=== PATIENT | female | born 1980 | race American Indian/Alaskan Native ===

== ENCOUNTER 2019-07-03 15:55 | Emergency (ER) | payer BC ==
--- NOTE | 2019-07-03 16:10 | Event Note ---
ED Screening Note ED Screening Note: constricted on exam palpitations come and go associated with cp and sob denies c/e/d pmh denies meds denies surgery denies no fever or chills no exposure This initial assessment/diagnostic orders/clinical plan/treatment(s) is/are subject to change based on patients health status, clinical progression and re- assessment by fellow clinical providers in the ED. Further treatment and workup at subsequent clinical providers discretion. Patient/guardian urged not to elope from the ED as their condition may be serious if not clinically assessed and managed. Initial orders include: ekg- nap basic labs/ua/xray defer dimer to provider in ER
[2019-07-03 17:59] LABS: Basophils # (Auto) 0.1 K/mm3 (0.0-0.1); Basophils % (Auto) 1.4 % (0.0-1.8); Eosinophils # (Auto) 0.1 K/mm3 (0.0-0.4); Eosinophils % (Auto) 1.7 % (0.0-4.3); Hematocrit 40.8 % (30.3-42.9); Hemoglobin 13.2 gm/dl (10.1-14.3); Lymphocytes # (Auto) 2.7 K/mm3 (1.2-5.4); Lymphocytes % (Auto) 34.5 % (13.4-35.0); Mean Corpuscular HGB Conc 32 % (30-34); Mean Corpuscular Volume 83 fl (79-97); Monocytes # (Auto) 0.4 K/mm3 (0.0-0.8); Monocytes % (Auto) 4.9 % (0.0-7.3); Platelet Count 272 K/mm3 (140-440); Red Blood Count 4.91 M/mm3 (3.65-5.03); Red Cell Distribution Width 13.6 % (13.2-15.2)
[2019-07-03 18:10] LABS: Alanine Aminotransferase 22 units/L (7-56); Albumin 4.7 g/dL (3.9-5); BUN/Creatinine Ratio 20; Blood Urea Nitrogen 14 mg/dL (7-17); Calcium 9.6 mg/dL (8.4-10.2); Hemolysis Index 13
[2019-07-03] MEDS ORDERED: NAPROXEN 500 MG TAB PO ONE (18:21)
--- NOTE | 2019-07-03 18:26 | Emergency Department Report ---
ED General Adult HPI - General Chief complaint: Chest Pain Stated complaint: HEART RAPID/CP Time Seen by Provider: 07/03/19 16:09 Source: patient Mode of arrival: Ambulatory Limitations: No Limitations - History of Present Illness Initial comments: Patient is a 38-year-old female presents emergency room with complaints of palpitations that began earlier today. She states that she has felt them intermittently throughout the day. She states that she has associated right- sided chest tightness. She states when she feels the palpitations she has mild shortness of breath. She has no shortness of breath currently. She denies any leg swelling, cough, hemoptysis, fever, recent travel, recent surgery, hormone use. She denies any past medical history or allergies to medications. She states she drinks approximately 1 cup of coffee a day. She states her last menstrual cycle was last week. She denies any family history of cardiac issues or DVT/PE. - Related Data Previous Rx's Medication Instructions Recorded Last Taken Type Naproxen [EC-Naproxen] 500 mg PO BID PRN #14 tablet. 07/03/19 Unknown Rx cephALEXin [Keflex] 500 mg PO BID 7 Days #14 cap 07/03/19 Unknown Rx ED Review of Systems ROS: Stated complaint: HEART RAPID/CP Other details as noted in HPI Comment: All other systems reviewed and negative ED Past Medical Hx - Past Medical History Previous Medical History?: No - Surgical History Past Surgical History?: No - Social History Smoking Status: Former Smoker Substance Use Type: None - Medications Home Medications: Home Medications Medication Instructions Recorded Confirmed Last Taken Type Naproxen [EC-Naproxen] 500 mg PO BID PRN #14 tablet. 07/03/19 Unknown Rx cephALEXin [Keflex] 500 mg PO BID 7 Days #14 cap 07/03/19 Unknown Rx ED Physical Exam - General Limitations: No Limitations General appearance: alert, in no apparent distress - Head Head exam: Present: atraumatic, normocephalic - Eye Eye exam: Present: normal appearance - ENT ENT exam: Present: mucous membranes moist - Respiratory Respiratory exam: Present: normal lung sounds bilaterally, chest wall tenderness (reproducible right anterior chest wall ttp, no deformity, no crepitus). Absent: respiratory distress, wheezes, rales, rhonchi, stridor, accessory muscle use, decreased breath sounds, prolonged expiratory - Cardiovascular Cardiovascular Exam: Present: regular rate, normal rhythm, normal heart sounds. Absent: systolic murmur, diastolic murmur, rubs, gallop - Extremities Exam Extremities exam: Absent: pedal edema - Neurological Exam Neurological exam: Present: alert, oriented X3 - Psychiatric Psychiatric exam: Present: normal affect, normal mood - Skin Skin exam: Present: warm, dry, intact ED Course Vital Signs 07/03/19 07/03/19 15:57 20:28 Temperature 97.2 F L Pulse Rate 89 77 Respiratory 20 17 Rate Blood Pressure 152/82 O2 Sat by Pulse 98 99 Oximetry ED Medical Decision Making - Lab Data Result diagrams: 07/03/19 17:32 07/03/19 17:32 Lab Results 07/03/19 07/03/19 07/03/19 Range/Units 17:32 17:32 17:32 WBC 7.8 (4.5-11.0) K/mm3 RBC 4.91 (3.65-5.03) M/mm3 Hgb 13.2 (10.1-14.3) gm/dl Hct 40.8 (30.3-42.9) % MCV 83 (79-97) fl MCH 27 L (28-32) pg MCHC 32 (30-34) % RDW 13.6 (13.2-15.2) % Plt Count 272 (140-440) K/mm3 Lymph % (Auto) 34.5 (13.4-35.0) % Pierce % (Auto) 4.9 (0.0-7.3) % Eos % (Auto) 1.7 (0.0-4.3) % Baso % (Auto) 1.4 (0.0-1.8) % Lymph # 2.7 (1.2-5.4) K/mm3 Pierce # 0.4 (0.0-0.8) K/mm3 Eos # 0.1 (0.0-0.4) K/mm3 Baso # 0.1 (0.0-0.1) K/mm3 Seg Neutrophils % 57.5 (40.0-70.0) % Seg Neutrophils # 4.5 (1.8-7.7) K/mm3 PT 13.3 (12.2-14.9) Sec. INR 1.00 (0.87-1.13) Sodium (137-145) mmol/L Potassium (3.6-5.0) mmol/L Chloride (98-107) mmol/L Carbon Dioxide (22-30) mmol/L Anion Gap mmol/L BUN (7-17) mg/dL Creatinine (0.7-1.2) mg/dL Estimated GFR ml/min BUN/Creatinine Ratio % Glucose (65-100) mg/dL Calcium (8.4-10.2) mg/dL Total Bilirubin (0.1-1.2) mg/dL AST (5-40) units/L ALT (7-56) units/L Alkaline Phosphatase (35-129) units/L Troponin T < 0.010 (0.00-0.029) ng/mL Total Protein (6.3-8.2) g/dL Albumin (3.9-5) g/dL Albumin/Globulin Ratio % Urine Color (Yellow) Urine Turbidity (Clear) Urine pH (5.0-7.0) Ur Specific [place] (1.003-1.030) Urine Protein (Negative) mg/dL Urine Glucose (UA) (Negative) mg/dL Urine Ketones (Negative) mg/dL Urine Blood (Negative) Urine Nitrite (Negative) Urine Bilirubin (Negative) Urine Urobilinogen (<2.0) mg/dL Ur Leukocyte Esterase (Negative) Urine WBC (Auto) (0.0-6.0) /HPF Urine RBC (Auto) (0.0-6.0) /HPF U Epithel Cells (Auto) (0-13.0) /HPF Urine Mucus /HPF Urine HCG, Qual (Negative) Urine Opiates Screen Urine Methadone Screen Ur Barbiturates Screen Ur Phencyclidine Scrn Ur Amphetamines Screen U Benzodiazepines Scrn Urine Cocaine Screen U Marijuana (THC) Screen Drugs of Abuse Note 07/03/19 07/03/19 07/03/19 Range/Units 17:32 18:09 18:09 WBC (4.5-11.0) K/mm3 RBC (3.65-5.03) M/mm3 Hgb (10.1-14.3) gm/dl Hct (30.3-42.9) % MCV (79-97) fl MCH (28-32) pg MCHC (30-34) % RDW (13.2-15.2) % Plt Count (140-440) K/mm3 Lymph % (Auto) (13.4-35.0) % Pierce % (Auto) (0.0-7.3) % Eos % (Auto) (0.0-4.3) % Baso % (Auto) (0.0-1.8) % Lymph # (1.2-5.4) K/mm3 Pierce # (0.0-0.8) K/mm3 Eos # (0.0-0.4) K/mm3 Baso # (0.0-0.1) K/mm3 Seg Neutrophils % (40.0-70.0) % Seg Neutrophils # (1.8-7.7) K/mm3 PT (12.2-14.9) Sec. INR (0.87-1.13) Sodium 137 (137-145) mmol/L Potassium 3.9 (3.6-5.0) mmol/L Chloride 99.1 (98-107) mmol/L Carbon Dioxide 24 (22-30) mmol/L Anion Gap 18 mmol/L BUN 14 (7-17) mg/dL Creatinine 0.7 (0.7-1.2) mg/dL Estimated GFR > 60 ml/min BUN/Creatinine Ratio 20 % Glucose 83 (65-100) mg/dL Calcium 9.6 (8.4-10.2) mg/dL Total Bilirubin 0.20 (0.1-1.2) mg/dL AST 22 (5-40) units/L ALT 22 (7-56) units/L Alkaline Phosphatase 60 (35-129) units/L Troponin T (0.00-0.029) ng/mL Total Protein 7.5 (6.3-8.2) g/dL Albumin 4.7 (3.9-5) g/dL Albumin/Globulin Ratio 1.7 % Urine Color Yellow (Yellow) Urine Turbidity Slightly-cloudy (Clear) Urine pH 6.0 (5.0-7.0) Ur Specific [place] 1.012 (1.003-1.030) Urine Protein <15 mg/dl (Negative) mg/dL Urine Glucose (UA) Neg (Negative) mg/dL Urine Ketones Neg (Negative) mg/dL Urine Blood Mod (Negative) Urine Nitrite Neg (Negative) Urine Bilirubin Neg (Negative) Urine Urobilinogen < 2.0 (<2.0) mg/dL Ur Leukocyte Esterase Sm (Negative) Urine WBC (Auto) 7.0 H (0.0-6.0) /HPF Urine RBC (Auto) 4.0 (0.0-6.0) /HPF U Epithel Cells (Auto) 8.0 (0-13.0) /HPF Urine Mucus Few /HPF Urine HCG, Qual Negative (Negative) Urine Opiates Screen Presumptive negative Urine Methadone Screen Presumptive negative Ur Barbiturates Screen Presumptive negative Ur Phencyclidine Scrn Presumptive negative Ur Amphetamines Screen Presumptive negative U Benzodiazepines Scrn Presumptive negative Urine Cocaine Screen Presumptive negative U Marijuana (THC) Screen Presumptive negative Drugs of Abuse Note Disclamer 07/03/19 Range/Units 19:40 WBC (4.5-11.0) K/mm3 RBC (3.65-5.03) M/mm3 Hgb (10.1-14.3) gm/dl Hct (30.3-42.9) % MCV (79-97) fl MCH (28-32) pg MCHC (30-34) % RDW (13.2-15.2) % Plt Count (140-440) K/mm3 Lymph % (Auto) (13.4-35.0) % Pierce % (Auto) (0.0-7.3) % Eos % (Auto) (0.0-4.3) % Baso % (Auto) (0.0-1.8) % Lymph # (1.2-5.4) K/mm3 Pierce # (0.0-0.8) K/mm3 Eos # (0.0-0.4) K/mm3 Baso # (0.0-0.1) K/mm3 Seg Neutrophils % (40.0-70.0) % Seg Neutrophils # (1.8-7.7) K/mm3 PT (12.2-14.9) Sec. INR (0.87-1.13) Sodium (137-145) mmol/L Potassium (3.6-5.0) mmol/L Chloride (98-107) mmol/L Carbon Dioxide (22-30) mmol/L Anion Gap mmol/L BUN (7-17) mg/dL Creatinine (0.7-1.2) mg/dL Estimated GFR ml/min BUN/Creatinine Ratio % Glucose (65-100) mg/dL Calcium (8.4-10.2) mg/dL Total Bilirubin (0.1-1.2) mg/dL AST (5-40) units/L ALT (7-56) units/L Alkaline Phosphatase (35-129) units/L Troponin T < 0.010 (0.00-0.029) ng/mL Total Protein (6.3-8.2) g/dL Albumin (3.9-5) g/dL Albumin/Globulin Ratio % Urine Color (Yellow) Urine Turbidity (Clear) Urine pH (5.0-7.0) Ur Specific [place] (1.003-1.030) Urine Protein (Negative) mg/dL Urine Glucose (UA) (Negative) mg/dL Urine Ketones (Negative) mg/dL Urine Blood (Negative) Urine Nitrite (Negative) Urine Bilirubin (Negative) Urine Urobilinogen (<2.0) mg/dL Ur Leukocyte Esterase (Negative) Urine WBC (Auto) (0.0-6.0) /HPF Urine RBC (Auto) (0.0-6.0) /HPF U Epithel Cells (Auto) (0-13.0) /HPF Urine Mucus /HPF Urine HCG, Qual (Negative) Urine Opiates Screen Urine Methadone Screen Ur Barbiturates Screen Ur Phencyclidine Scrn Ur Amphetamines Screen U Benzodiazepines Scrn Urine Cocaine Screen U Marijuana (THC) Screen Drugs of Abuse Note Vital Signs 07/03/19 07/03/19 07/03/19 15:57 19:16 20:28 Temperature 97.2 F L Pulse Rate 89 81 77 Respiratory 20 15 17 Rate Blood Pressure 152/82 O2 Sat by Pulse 98 100 99 Oximetry 07/03/19 07/03/19 20:30 20:46 Temperature Pulse Rate 82 88 Respiratory 22 24 Rate Blood Pressure 146/81 142/78 O2 Sat by Pulse 100 100 Oximetry - EKG Data EKG shows normal: sinus rhythm, axis, intervals, QRS complexes, ST-T waves Rate: normal - EKG Data 07/03/19 20:48 no STEMI EKG does not meet criteria for LVH at this time - Radiology Data Radiology results: report reviewed CHEST 2 VIEWS INDICATION / CLINICAL INFORMATION: Shortness of breath. COMPARISON: None available. FINDINGS: SUPPORT DEVICES: None. HEART / MEDIASTINUM: No significant abnormality. LUNGS / PLEURA: No significant pulmonary or pleural abnormality. No pneumothorax. ADDITIONAL FINDINGS: No significant additional findings. IMPRESSION: No acute finding. Signer Name: Lucio Celestin MD Signed: 07/03/2019 8:25 PM Workstation Name: [id number] Transcribed By: AMY Dictated By: Lucio Celestin MD Electronically Authenticated By: Lucio Celestin MD Signed Date/Time: 07/03/192024 DD/ 23 TD/TT: - Medical Decision Making Patient is a 38-year-old female presents emergency room with complaints of palpitations that began earlier today. She states that she has felt them intermittently throughout the day. She states that she has associated right- sided chest tightness. She states when she feels the palpitations she has mild shortness of breath. She has no shortness of breath currently. She denies any leg swelling, cough, hemoptysis, fever, recent travel, recent surgery, hormone use. She denies any past medical history or allergies to medications. She states she drinks approximately 1 cup of coffee a day. She states her last menstrual cycle was last week. She denies any family history of cardiac issues or DVT/PE. Vitals are stable. Patient has no tachycardia. Patient was placed on monitor while in the ED and observed for several hours and had no hypoxia and no tachycardia. on exam: reproducible right anterior chest wall ttp, no deformity, no crepitus. EKG within normal limits. Labs are normal. Troponin is negative x2. UDS is negative. UA shows evidence of UTI. H&H is normal. CXR no acute process. PERC criteria negative for PE. Wells score for PE is 0, very low risk for PE. LEWIS score is 0 and heart score is 1, low risk for cardiac event. Will have patient follow-up with cardiology as an outpatient. Patient given prescription for naproxen for chest wall pain and Keflex for UTI. advised pt Please take medication as prescribed. Increase your water intake. Please avoid caffeine use. Follow-up with a primary care doctor. Follow-up with a web designer developer. Return to the emergency room immediately for any new or worsening symptoms. - Differential Diagnosis Anxiety, anemia, caffeine use, electrolyte disturbance, arrhythmia Critical care attestation.: If time is entered above; I have spent that time in minutes in the direct care of this critically ill patient, excluding procedure time. ED Disposition Clinical Impression: Palpitations, Chest wall pain UTI (urinary tract infection) Qualifiers: Urinary tract infection type: acute cystitis Hematuria presence: without hematuria Qualified Code(s): N30.00 - Acute cystitis without hematuria Disposition: TO HOME OR SELFCARE Is pt being admited?: No Does the pt Need Aspirin: No Condition: Stable Instructions: Palpitations (ED), Urinary Tract Infection in Women (ED) Additional Instructions: Please take medication as prescribed. Increase your water intake. Please avoid caffeine use. Follow-up with a primary care doctor. Follow-up with a web designer developer. Return to the emergency room immediately for any new or worsening symptoms. Prescriptions: Naproxen [EC-Naproxen] 500 mg PO BID PRN #14 tablet.dr GUERIN Reason: pain cephALEXin [Keflex] 500 mg PO BID 7 Days #14 cap Referrals: MEME ORONA MD [Primary Care Provider] - 2-3 Days ANGELA BRAUN MD [Staff Physician] - 2-3 Days Time of Disposition: 20:42 Print Language: UKRAINIAN
[2019-07-03 18:28] LABS: Bilirubin,Urine NEG (Negative); Blood,Urine MOD (Negative); Color,Urine Yellow (Yellow); Mucus,Urine FEW /HPF; Protein,Urine <15 mg/dL mg/dL (Negative); Urobilinogen,Urine < 2.0 mg/dL (<2.0)
[2019-07-03 18:33] LABS: Amphetamine Screen,Urine PRESUMPTIVE NEGATIVE; Benzodiazepines Screen,Urine PRESUMPTIVE NEGATIVE; Cannabinoid Screen,Urine PRESUMPTIVE NEGATIVE; Cocaine Screen,Urine PRESUMPTIVE NEGATIVE; Methadone Screen,Urine PRESUMPTIVE NEGATIVE; Opiate Screen,Urine PRESUMPTIVE NEGATIVE
[2019-07-03 18:48] LABS: HCG Qualitative,Urine Negative (Negative)
--- NOTE | 2019-07-03 20:29 | XRay Report ---
CHEST 2 VIEWS INDICATION / CLINICAL INFORMATION: Shortness of breath. COMPARISON: None available. FINDINGS: SUPPORT DEVICES: None. HEART / MEDIASTINUM: No significant abnormality. LUNGS / PLEURA: No significant pulmonary or pleural abnormality. No pneumothorax. ADDITIONAL FINDINGS: No significant additional findings. IMPRESSION: No acute finding. Signer Name: Lucio Celestin MD Signed: 07/03/2019 8:25 PM Workstation Name: [id number]
[2019-07-03 21:02] VITALS: BP 146/81
== END 2019-07-03 21:08 | disposition home or self-care (01) ==
LOC: ED 15:55
DX: N39.0 Urinary tract infection, site not specified (principal); R00.2 Palpitations; R07.89 Other chest pain; Z87.891 Personal history of nicotine dependence
CPT/HCPCS: 36415; 71046; 80053; 80307; 81001; 81025; 84484; 85025; 85610; 93005; 93010; 99283

== ENCOUNTER 2021-08-11 11:22 | Outpatient (CLI) | payer OTHER ==
--- NOTE | 2021-08-11 13:56 | XRay Report ---
LUMBAR SPINE HISTORY: Back pain COMPARISON: None. TECHNIQUE: 3 view(s) of the lumbar spine obtained. FINDINGS: Vertebrae: Normal alignment. No displaced fracture or significant abnormality. Disc Spaces:There is mild degenerative disc disease at L5-S1 with a small posterior osteophyte at thi s level. Remaining disc spaces are preserved. Facet Joints:No significant abnormality. Additional findings: None. IMPRESSION: 1. Mild degenerative disc disease at L5-S1. Signer Name: Mendy Bennett MD Signed: 08/11/2021 1:52 PM Workstation Name: [id number]
--- NOTE | 2021-08-11 14:13 | XRay Report ---
LEFT KNEE 2 VIEWS INDICATION / CLINICAL INFORMATION: Left knee pain. History of left knee arthritis. COMPARISON: Left knee series from 01/24/2012. FINDINGS: BONES and JOINT(S): No acute fracture or subluxation. Severe tricompartmental osteoarthritis has prog ressed in the interval. Probable cruciate ligament reconstructive changes are again noted. SOFT TISSUES: No significant abnormality. ADDITIONAL FINDINGS: None. IMPRESSION: 1. No acute findings. 2. Interval progression of severe osteoarthritis of the left knee. Signer Name: Abner Le MD Signed: 08/11/2021 2:08 PM Workstation Name: [facility]
== END 2021-08-11 11:23 | disposition home or self-care (01) ==
LOC: XRAY 11:22
PROVIDERS: ATTEND Internal Medicine
DX: M17.12 Unilateral primary osteoarthritis, left knee (principal); M47.817 Spondylosis without myelopathy or radiculopathy, lumbosacral region; M25.78 Osteophyte, vertebrae
CPT/HCPCS: 72100